=== PATIENT | male | born 1945 | race Caucasian/White ===

== ENCOUNTER 2017-01-22 19:40 | Observation (INO) | payer MEDICARE ==
[2017-01-22 19:42] VITALS: BP 208/102; PULSE 120; RESP 18; TEMP 98.1; O2SAT 96
[2017-01-22 19:58] VITALS: RESP 19; O2SAT 97
--- NOTE | 2017-01-22 20:02 | PD ---
HPI Chief Complaint: chest pain Time Seen by Provider: 19:46 Travel History International Travel<30 days: No Contact w/Intl Traveler<30days: No History of Present Illness HPI The patient is a 71 year old male who presents to the [facility] emergency department with a history of reportedly not feeling well since between 1 and 2 PM today. He reports that he has felt flushed with a pressure in his neck and an aching sensation in the left arm. The patient reports that he also had a few minutes of chest pain. He denies having any chest pain at this time. He reports that his arm achiness may be related to receiving a flu shot 3 days ago , however he was concerned that he does have a history of myocardial infarction in 2013. His last stress test was 2 years ago. Recently moved to the area and does not have a primary care physician or driver courier at this time. He reports that at 6 PM he did take 2 adult aspirin related to his symptoms. He took his usual blood pressure medication as well. On review of systems otherwise, the patient denies having any cough, congestion, worsening shortness of breath, abdominal pain, vomiting, urinary symptoms, or neurologic symptoms. The patient incidentally does report on review of systems that he had a colonoscopy with polypectomy done 4 weeks ago. He reports that his bowels have not been regular since then. He reports that he has been using stool softeners to help himself ago. He reports that yesterday he did move his bowels 7 times. He denies having any blood in his stool or black or tarry stools. [facility] Past Medical History Narrative Medical The patient's past medical history is significant for hypertension, COPD, hyperlipidemia, history of coronary artery disease status post myocardial infarction in 2013 and a single stent placed. Past Surgical History Narrative Surgical The patient's past surgical history is significant for colonoscopy with polypectomy, cholecystectomy, hernia repair, left leg surgery related to a skin infection Social History Alcohol Use: Yes (occasionally) Tobacco Use: No (quit in 2012) Substance Use: No Allergies-Medications (Allergen,Severity, Reaction): Coded Allergies: No Known Allergies (Unverified , 01/22/17) Review of Systems Except as stated in HPI: all other systems reviewed are Neg General / Constitutional: No: Fever Eyes: No: Visual changes HENT: Positive: Neck Pain, No: Headaches, Rhinorrhea, Congestion, Neck Stiffness Cardiovascular: Positive: Chest Pain or Discomfort, Dyspnea on exertion Respiratory: Positive: Shortness of Breath (chronic in nature related to COPD) , No: Cough Gastrointestinal: Positive: Diarrhea, Changes in Bowel Habits, No: Nausea, Vomiting, Abdominal Pain, Indigestion, Loss of Appetite Genitourinary: No: Dysuria Musculoskeletal: No: Pain Skin: No Rash Neurologic: No: Weakness, Focal Abnormalities, Change in Mentation, Slurred Speech, Sensory Disturbance Psychiatric: No: Depression Endocrine: No: Polydipsia Hematologic/Lymphatic: No: Easy Bruising Physical Exam Narrative General: The patient is a well-developed well-nourished male in no acute distress. Head and Neck exam: Head is normocephalic atraumatic. Eyes: EOMI, pupils are equal round and reactive to light. Nose: Midline septum with pink mucous membranes Mouth: Dentition unremarkable. Moist mucus membranes. Posterior oropharynx is not erythematous. No tonsillar hypertrophy. Uvula midline. Airway patent. Neck: No palpable lymphadenopathy. No nuchal rigidity. No thyromegaly. Cardiovascular: Sinus tachycardia in the low 100 without murmurs, gallops, or rubs. No pulse deficit to the extremities on simultaneous auscultation and palpation of his radial artery. Lungs: Clear to auscultation bilaterally. No wheezes, rhonchi, or rales. Abdomen: Soft, without tenderness to palpation in all 4 quadrants of the abdomen. No guarding, rebound, or rigidity. No bowel sounds are audible. No tenderness on palpation of McBurney's point. Extremities: No clubbing, cyanosis, or edema. 2+ pulses in all 4 extremities. No calf tenderness on palpation. Back: No costovertebral angle tenderness to palpation. Neurologic Exam: Grossly nonfocal. Skin Exam: No rash noted. Intact skin that is warm and dry. Data Data Last Documented VS Vital Signs Date Time Temp Pulse Resp B/P (MAP) Pulse Ox O2 Delivery O2 Flow Rate FiO2 01/22/17 19:58 19 97 Room Air 01/22/17 19:58 98 01/22/17 19:42 98.1 Orders Orders Electrocardiogram (01/22/17 19:55) Complete Blood Count With Diff (01/22/17 19:55) Comprehensive Metabolic Panel (01/22/17 19:55) Creatine Kinase (Cpk) (01/22/17 19:55) Ckmb (Isoenzyme) Profile (01/22/17 19:55) Troponin I (01/22/17 19:55) B-Type Natriuretic Peptide (01/22/17 19:55) Prothrombin Time / Inr (Pt) (01/22/17 19:55) Act Partial Throm Time (Ptt) (01/22/17 19:55) Lipase (01/22/17 19:55) Magnesium (Mg) (01/22/17 19:55) Chest, Single Ap (01/22/17 19:55) Iv Access Insert/Monitor (01/22/17 19:55) Ecg Monitoring (01/22/17 19:55) Oximetry (01/22/17 19:55) Nitroglycerin 2% Oint (Nitroglycerin 2% (01/22/17 20:15) Sodium Chlorid 0.9% 500 Ml Inj (Ns 500 M (01/22/17 20:15) Admit Order (Ed Use Only) (01/22/17 21:32) Labs Laboratory Tests Test 01/22/17 19:50 White Blood Count 8.1 TH/MM3 Red Blood Count 5.05 MIL/MM3 Hemoglobin 16.3 GM/DL Hematocrit 46.8 % Mean Corpuscular Volume 92.5 FL Mean Corpuscular Hemoglobin 32.3 PG Mean Corpuscular Hemoglobin Concent 34.9 % Red Cell Distribution Width 12.8 % Platelet Count 303 TH/MM3 Mean Platelet Volume 7.1 FL Neutrophils (%) (Auto) 69.4 % Lymphocytes (%) (Auto) 20.9 % Monocytes (%) (Auto) 6.5 % Eosinophils (%) (Auto) 2.7 % Basophils (%) (Auto) 0.5 % Neutrophils # (Auto) 5.6 TH/MM3 Lymphocytes # (Auto) 1.7 TH/MM3 Monocytes # (Auto) 0.5 TH/MM3 Eosinophils # (Auto) 0.2 TH/MM3 Basophils # (Auto) 0.0 TH/MM3 CBC Comment DIFF FINAL Differential Comment Prothrombin Time 10.7 SEC Prothromb Time International Ratio 1.0 RATIO Activated Partial Thromboplast Time 27.1 SEC Blood Urea Nitrogen 11 MG/DL Creatinine 1.23 MG/DL Random Glucose 118 MG/DL Total Protein 8.8 GM/DL Albumin 4.7 GM/DL Calcium Level 9.4 MG/DL Magnesium Level 2.1 MG/DL Alkaline Phosphatase 137 U/L Aspartate Amino Transf (AST/SGOT) 33 U/L Alanine Aminotransferase (ALT/SGPT) 36 U/L Total Bilirubin 1.1 MG/DL Sodium Level 136 MEQ/L Potassium Level 3.7 MEQ/L Chloride Level 102 MEQ/L Carbon Dioxide Level 26.8 MEQ/L Anion Gap 7 MEQ/L Estimat Glomerular Filtration Rate 58 ML/MIN Total Creatine Kinase 82 U/L Troponin I LESS THAN 0.02 NG/ML B-Type Natriuretic Peptide 15 PG/ML Lipase 144 U/L MDM Medical Decision Making Medical Screen Exam Complete: Yes Emergency Medical Condition: Yes Medical Record Reviewed: Yes Interpretation(s) Last Impressions Chest X-Ray 01/22/171954 Signed Impressions: Service Date/Time: Sunday, January 22, 2017 19:57 - CONCLUSION: Pulmonary emphysema and scarring or atelectasis on the right. Estevan Miranda MD Differential Diagnosis Acute coronary syndrome, versus aortic dissection, versus pulmonary embolism, versus COPD exacerbation, versus new-onset congestive heart failure Narrative Course During the course of the patients emergency department visit, the patients history, examination, and differential diagnosis were reviewed with the patient. The patient was placed on a door and arrival attendant with oximetry and frequent blood pressure monitoring. The patient had IV access obtained and blood work sent for analysis. The patient's initial blood pressure on arrival is 200 systolic, however after waiting in the emergency department and being hooked up to the monitor, the patient's blood pressure quickly came down to 167 systolic. The patient's ECG done on arrival shows a sinus tachycardia rate of 107, QRS duration 60 ms, QTC [address] segment elevation, T waves are inverted in aVL, V1, V2 The patient was initially provided nitroglycerin 1 inch of the chest wall, normal saline a 500 mL bolus 1. The patients laboratory studies were reviewed and remarkable for a white count of 8.1, hemoglobin 16.3, platelets 303 with a normal differential, CMP is remarkable for glucose of 118, total bilirubin 1.1, alkaline phosphatase 137, CPK 82, troponin I less than 0.02, BNP is 15, total protein 8.8, lipase 144, PT 10.7, PTT 27.1. Radiology studies were reviewed and remarkable for a chest x-ray that shows pulmonary emphysema and scarring or atelectasis on the right side. Given the fact that the patient has not had any stress testing done in the last 2 years the patient will be admitted to the chest pain center for rule out serial cardiac enzyme protocol. The patients results were discussed with the patient, including the plan of care. I explained that further testing and/ or monitoring is indicated based on the patients history, examination, and/ or laboratory findings. Therefore, I recommended admission for additional evaluation. The patient expressed understanding and was agreeable with this plan. The patient was admitted to the hospital in stable condition and sent to a bed under the care of chest pain center. Diagnosis Primary Impression: Chest pain, rule out acute myocardial infarction Admitting Information Admitting Physician Requests: Aliyah Crowe MD Jan 22, 2017 20:02
[2017-01-22] MEDS ORDERED: NITROGLYCERIN 2% OINT 1 GM PACKET TOPICAL ONE (20:15)
[2017-01-22] MEDS ORDERED: SODIUM CHLORID 0.9% 500 ML INJ 500 ML IV ONE (20:15)
--- NOTE | 2017-01-22 20:16 | RADRPT ---
EXAM DATE/TIME: 01/22/2017 19:57 [facility] COMPARISON: No previous studies available for comparison. INDICATIONS : Chest pain MEDICAL HISTORY : Cardiovascular disease. SURGICAL HISTORY : Coronary artery stent. ENCOUNTER: Initial ACUITY: 1 day PAIN SCORE: 2/10 LOCATION: chest FINDINGS: Single AP view of the chest. Hyperlucency at the right upper lung suggesting emphysema. Linear subseg mental atelectasis or scarring in the right midlung and lower lung. Lungs are otherwise clear. No angela dence of pleural effusion or pneumothorax. Cardiomediastinal silhouette within normal limits. CONCLUSION: Pulmonary emphysema and scarring or atelectasis on the right. Estevan Miranda MD on January 22, 2017 at 20:13 Board Certified Radiologist. This report was verified electronically.
[2017-01-22 20:17] LABS: AUTOMATED NEUTROPHIL # 5.6 TH/MM3 (1.8-7.7); BASOPHIL % 0.5 % (0.0-2.0); EOSINOPHIL # 0.2 TH/MM3 (0-0.4); EOSINOPHIL % 2.7 % (0.0-4.0); HEMATOCRIT 46.8 % (39.0-51.0); HEMO FLAGS DIFF FINAL; LYMPH % 20.9 % (9.0-44.0); LYMPHOCYTE # 1.7 TH/MM3 (1.0-4.8); MEAN CELL VOLUME 92.5 FL (80.0-100.0); MEAN CORPUSCULAR HEMOGLOBIN 32.3 PG (27.0-34.0); MEAN CORPUSCULAR HGB CONC 34.9 % (32.0-36.0); MONO % 6.5 % (0.0-8.0); NEUT % 69.4 % (16.0-70.0); PLATELET COUNT 303 TH/MM3 (150-450); RED BLOOD COUNT 5.05 MIL/MM3 (4.50-5.90); RED CELL DISTRIBUTION WIDTH 12.8 % (11.6-17.2); WHITE BLOOD COUNT 8.1 TH/MM3 (4.0-11.0)
[2017-01-22 20:25] LABS: APTT (PATIENT) 27.1 SEC (24.3-30.1); PROTHROMBIN TIME - PATIENT 10.7 SEC (9.8-11.6)
[2017-01-22 20:34] LABS: ALT (GPT) 36 U/L (12-78)
[2017-01-22 20:49] LABS: ALKALINE PHOSPHATASE 137 U/L (45-117); ANION GAP 7 MEQ/L (5-15); AST (GOT) 33 U/L (15-37); BICARBONATE 26.8 MEQ/L (21.0-32.0); BLOOD UREA NITROGEN 11 MG/DL (7-18); CHLORIDE 102 MEQ/L (98-107); CREATINE KINASE 82 U/L (39-308); GLOMERULAR FILTRATION RATE 58 ML/MIN (>89); MAGNESIUM 2.1 MG/DL (1.5-2.5); POTASSIUM 3.7 MEQ/L (3.5-5.1); SODIUM (NA) 136 MEQ/L (136-145); TOTAL BILIRUBIN ADULT 1.1 MG/DL (0.2-1.0)
[2017-01-22 21:00] VITALS: BP 121/66; PULSE 84; RESP 18; O2SAT 98
[2017-01-22] MEDS ORDERED: ONDANSETRON HCL 4 MG/2 ML VIAL IV PUSH PRN (21:45)
[2017-01-22] MEDS ORDERED: SODIUM CHLORIDE 0.9% FLUSH 10 ML FLUSH IV FLUSH PRN (21:45)
[2017-01-22] MEDS ORDERED: ACETAMINOPHEN 500 MG CPLT PO PRN (21:45)
[2017-01-22 23:35] LABS: CREATINE KINASE 52 U/L (39-308)
[2017-01-23 00:48] VITALS: BP 107/67; PULSE 79; RESP 18; TEMP 98.1; O2SAT 95
[2017-01-23 02:31] LABS: CREATINE KINASE 45 U/L (39-308)
[2017-01-23 04:53] VITALS: BP 105/65; PULSE 78; RESP 18; TEMP 98.5; O2SAT 93
[2017-01-23] MEDS: NITROGLYCERIN 2% OINT 1 GM PACKET TOP SCH ×2 (05:35)
[2017-01-23 07:03] VITALS: PULSE 79
--- NOTE | 2017-01-23 08:32 | HHI.HP ---
HPI Primary Care Physician No Local Primary Care Physician Chief Complaint Chest pressure History of Present Illness 71-year-old male with history of coronary artery disease, x1 cardiac stent, and COPD presents to emergency room for further evaluation of chest pressure. Onset yesterday afternoon between 1 and 2 PM. Location left anterior chest, posterior neck, and head pressure accompanied with bilateral arms "feeling funny." No weakness, numbness, or tingling of arms. No associated symptoms of nausea, vomiting, dyspnea, or diaphoresis. Duration approximately 6 hours. No known precipitating factors. Relieving factors none. He reports gradually relief over 4 hours after saline bolus and Nitro paste placement. Currently he is chest pain-free. Denies similar pain in the past. 2012 [place] symptoms included severe discomfort as "an elephant sitting on my chest, with nausea, dyspnea, and diaphoresis." Reports stent placed in LAD within 20-30 minutes arriving to ED. This occurred in [place]. Review of Systems General: No fatigue,weakness, fever, chills, recent illness, or change in appetite. Has been in his general state of health. 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 HEENT: No MATHEWS, "head pressure" has improved CV: As stated above. No current CP, discomfort, or pressure. No palpitations or intermittent leg pain. RESP: History of COPD with reported chronic, exertional sob. No cough, wheeze, or recent URI. GI: No nausea, vomiting, pain, distention, melena, or blood in the stool. Colonoscopy 4 weeks ago with polyp removal. since this time bowel habits have varied between constipation and loose stools. Plans to follow-up with GI this week. No unintentional weight gain or weight loss. : No dysuria EXT: No lower leg edema, no paraesthesias MS: No discomfort or change in ROM NEURO: No change in memory, difficulty with balance, LOC, motor/sensory deficits PSYCH: No anxiety, depression, or situational stress. SKIN: No rashes, no concerning lesions Past Family Social History Allergies: Coded Allergies: No Known Allergies (Unverified , 01/22/17) Past Medical History CAD, x1 cardiac stent, COPD Past Surgical History Cholecystectomy, hernia repair Reported Medications Spiriva 18mcg QD Symbicort 160/4.5 daily Esomeprazole 40mg QD Atorvastatin 40 mg daily Lisinopril 5 mg daily Montelukast 10 mg daily Aspirin 325 mg daily Active Ordered Medications Current Medications Medications (Trade) Dose Ordered Sig/Lisa Route Start Time Stop Time Status Last Admin (NS Flush) 2 ml UNSCH PRN IV FLUSH 01/22/17 21:45 (NS Flush) 2 ml BID IV FLUSH 01/23/17 09:00 (Tylenol) 500 mg Q4H PRN PO 01/22/17 21:45 (Zofran Inj) 4 mg Q6H PRN IV PUSH 01/22/17 21:45 (Nitroglycerin 2% Oint) 1 inch Q6HR TOP 01/23/17 00:00 (Aspirin) 325 mg DAILY PO 01/23/17 09:00 Family History Father CABG 3 in his early 50s. Mother from breast cancer age 60. Social History Known coronary artery disease. No known diabetes, hyperlipidemia, or hypertension. Appropriately on statin therapy. Former smoker, 100 pack year history. Denies any alcohol use. 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 Endorses a busy lifestyle, denies any routine exercise regimen. Past cardiac testing Chemical stress test 2 years ago unremarkable. Does not have a local programs manager. Cardiac catheterization in 2012-stent placed to LAD. Sounds as though he was a STEMI alert, this occurred while living in [place]. Physical Exam Vital Signs Vital Signs Date Time Temp Pulse Resp B/P (MAP) Pulse Ox O2 Delivery O2 Flow Rate FiO2 01/23/17 07:03 79 01/23/17 06:33 21 01/23/17 04:53 98.5 78 18 105/65 (78) 93 01/23/17 00:48 98.1 79 18 107/67 (80) 95 01/22/17 23:18 01/22/17 21:00 84 18 121/66 (84) 98 Room Air 01/22/17 19:58 19 97 Room Air 01/22/17 19:58 98 16 97 Room Air 01/22/17 19:42 98.1 120 18 208/102 (137) 96 Room Air Physical Exam GENERAL: Alert WN, WD, NAD, pleasant, male HEAD: NC, AT EYES: Sclera clear, conjunctiva without injection, pupils equal and round ENT: Mucous membranes pink and moist NECK: Supple, no masses, trachea midline CV: RRR, without murmur, rub, gallop, no JVD, S1-S2 no S3-S4. No carotid bruits. Chest wall nontender with palpation. RESP: Clear upper lobes, diminished bases. no crackles, wheeze, rhonchi, symmetrical chest rise, nonlabored, able to speak in full sentences ABD: Soft, NT, ND, no masses, positive bowel tones EXT: Pulses +24, no dependent edema MS: Normal tone 4 extremities, no obvious deformities, full range of motion NEURO: motor strength 5/5, gait WNL PSYCH: A+O 3, pleasant affect, appropriate speech, mood, insight and judgment SKIN: Normal turgor, normal texture, no lesions, no rashes, sluggish cap refill , even hair distribution Laboratory Laboratory Tests Test 01/22/17 19:50 01/22/17 23:05 01/23/17 01:45 White Blood Count 8.1 Red Blood Count 5.05 Hemoglobin 16.3 Hematocrit 46.8 Mean Corpuscular Volume 92.5 Mean Corpuscular Hemoglobin 32.3 Mean Corpuscular Hemoglobin Concent 34.9 Red Cell Distribution Width 12.8 Platelet Count 303 Mean Platelet Volume 7.1 Neutrophils (%) (Auto) 69.4 Lymphocytes (%) (Auto) 20.9 Monocytes (%) (Auto) 6.5 Eosinophils (%) (Auto) 2.7 Basophils (%) (Auto) 0.5 Neutrophils # (Auto) 5.6 Lymphocytes # (Auto) 1.7 Monocytes # (Auto) 0.5 Eosinophils # (Auto) 0.2 Basophils # (Auto) 0.0 CBC Comment DIFF FINAL Differential Comment Prothrombin Time 10.7 Prothromb Time International Ratio 1.0 Activated Partial Thromboplast Time 27.1 Blood Urea Nitrogen 11 Creatinine 1.23 Random Glucose 118 Total Protein 8.8 Albumin 4.7 Calcium Level 9.4 Magnesium Level 2.1 Alkaline Phosphatase 137 Aspartate Amino Transf (AST/SGOT) 33 Alanine Aminotransferase (ALT/SGPT) 36 Total Bilirubin 1.1 Sodium Level 136 Potassium Level 3.7 Chloride Level 102 Carbon Dioxide Level 26.8 Anion Gap 7 Estimat Glomerular Filtration Rate 58 Total Creatine Kinase 82 52 45 Troponin I LESS THAN 0.02 LESS THAN 0.02 LESS THAN 0.02 B-Type Natriuretic Peptide 15 Lipase 144 Result Diagram: 01/22/17194901/22/171949 Imaging Last Impressions Chest X-Ray 01/22/171954 Signed Impressions: Service Date/Time: Sunday, January 22, 2017 19:57 - CONCLUSION: Pulmonary emphysema and scarring or atelectasis on the right. Estevan Miranda MD Course EKG NSR, normal axis, no st t segment changes Caprini VTE Risk Assessment Caprini VTE Risk Assessment: Mod/High Risk (score >= 2) Caprini Risk Assessment Model Point Value = 1 Point Value = 2 Point Value = 3 Point Value = 5 Age 41-60 Minor surgery BMI > 25 kg/m2 Swollen legs Varicose veins or History of unexplained or recurrent spontaneous Oral contraceptives or hormone replacement Sepsis (< 1 month) Serious lung disease, including pneumonia (< 1 month) Abnormal pulmonary function Acute myocardial infarction Congestive heart failure (< 1 month) History of inflammatory bowel disease Medical patient at bed rest Age 61-74 Arthroscopic surgery Major open surgery (> 45 min) Laparoscopic surgery (> 45 min) Malignancy Confined to bed (> 72 hours) Immobilizing plaster cast Central venous access Age >= 75 History of VTE Family history of VTE Factor V Leiden Prothrombin [id number] Lupus anticoagulant Anticardiolipin antibodies Elevated serum homocysteine Heparin-induced thrombocytopenia Other congenital or acquired thrombophilia Stroke (< 1 month) Elective arthroplasty Hip, pelvis, or leg fracture Acute spinal cord injury (< 1 month) Prophylaxis Regimen Total Risk Factor Score Risk Level Prophylaxis Regimen 0-1 Low Early ambulation 2 Moderate Order ONE of the following: *Sequential Compression Device (SCD) *Heparin 5000 units SQ BID 3-4 Higher Order ONE of the following medications: *Heparin 5000 units SQ TID *Enoxaparin/Lovenox 40 mg SQ daily (WT < 150 kg, CrCl > 30 mL/min) *Enoxaparin/Lovenox 30 mg SQ daily (WT < 150 kg, CrCl > 10-29 mL/min) *Enoxaparin/Lovenox 30 mg SQ BID (WT < 150 kg, CrCl > 30 mL/min) AND/OR *Sequential Compression Device (SCD) 5 or more Highest Order ONE of the following medications: *Heparin 5000 units SQ TID (Preferred with Epidurals) *Enoxaparin/Lovenox 40 mg SQ daily (WT < 150 kg, CrCl > 30 mL/min) *Enoxaparin/Lovenox 30 mg SQ daily (WT < 150 kg, CrCl > 10-29 mL/min) *Enoxaparin/Lovenox 30 mg SQ BID (WT < 150 kg, CrCl > 30 mL/min) AND *Sequential Compression Device (SCD) Assessment and Plan Assessment and Plan #1 Atypical chest pain-the chest pain center. Ruled out with 3 sets of EKGs and cardiac enzymes. Seen and evaluated by Dr. Jose Juan Hu. Proceed with exercise stress test. If stress test unremarkable without signs of ischemia, plan would be to discharge home. Encouraged to establish with a PCP and a local programs manager. #2 History of CAD-continue atorvastatin, aspirin, and lisinopril. Discussed importance of establishing with a local programs manager. #3 COPD-continue Symbicort, Spiriva, and montelukast #4 GERD-continue esomeprazole Robyn Ojeda Jan 23, 2017 08:32
[2017-01-23] MEDS ORDERED: ASPIRIN 325 MG TAB PO SCH (09:00)
[2017-01-23] MEDS ORDERED: SODIUM CHLORIDE 0.9% FLUSH 10 ML FLUSH IV FLUSH SCH (09:00)
[2017-01-23] MEDS ORDERED: NEXI40CA PO (09:10)
[2017-01-23] MEDS ORDERED: SPIRCAP INH (09:22)
[2017-01-23] MEDS ORDERED: SYMB80AE INH (09:22)
[2017-01-23] MEDS ORDERED: MONT10TA4 PO (09:22)
[2017-01-23] MEDS ORDERED: LISI-519 PO (09:22)
[2017-01-23] MEDS ORDERED: ATOR40TA16 PO (09:22)
[2017-01-23] MEDS ORDERED: PANTOPRAZOLE SOD 40 MG DELAYED RELEASE TAB PO SCH (11:00)
[2017-01-23] MEDS ORDERED: LISINOPRIL 5 MG TAB PO SCH (11:00)
--- NOTE | 2017-01-23 11:28 | HHI.DCPOC ---
Discharge Care Plan Diagnosis: (1) Atypical chest pain (2) Hx of coronary artery disease Goals to Promote Your Health * To prevent worsening of your condition and complications * To maintain your health at the optimal level Directions to Meet Your Goals Take your medications as prescribed Follow your dietary instruction Follow activity as directed Keep your appointments as scheduled Take your immunizations and boosters as scheduled If your symptoms worsen call your PCP, if no PCP go to Urgent Care Center or Emergency Room Smoking is Dangerous to Your Health. Avoid second hand smoke Call the 24-hour hour crisis hotline for domestic abuse at Robyn Ojeda Jan 23, 2017 11:28
--- NOTE | 2017-01-23 14:30 | EKG ---
Date Performed: 01/23/2017 Time Performed: 02:15:43 PTAGE: 71 years EKG: Sinus rhythm LOW QRS VOLTAGE IN PRECORDIAL LEADS PREVIOUS TRACING : 01/23/2017 02.12 Since previous tracing, no significant change noted DOCTOR: Jose Juan Hu Interpretating Date/Time 01/23/2017 14:30:00
--- NOTE | 2017-01-23 14:31 | EKG ---
Date Performed: 01/22/2017 Time Performed: 23:09:03 PTAGE: 71 years EKG: Sinus rhythm INDETERMINATE AXIS LOW QRS VOLTAGE IN PRECORDIAL LEADS BORDERLINE ECG NO PREVIOUS TRACING DOCTOR: Jose Juan Hu Interpretating Date/Time 01/23/2017 14:30:32
--- NOTE | 2017-01-23 14:32 | EKG ---
Date Performed: 01/22/2017 Time Performed: 19:50:12 PTAGE: 71 years EKG: SINUS TACHYCARDIA INDETERMINATE AXIS LOW QRS VOLTAGE IN PRECORDIAL LEADS ABNORMAL ECG NO PREVIOUS TRACING DOCTOR: Jose Juan Hu Interpretating Date/Time 01/23/2017 14:31:39
--- NOTE | 2017-01-23 14:35 | TR ---
Date Performed: 01/23/2017 Time Performed: 10:30:02 DOCTOR: Jose Juan Hu DRUG LIST: CLINICAL HISTORY: CP R/O OH REASON FOR TEST: REASON FOR ENDING: OBSERVATION: CONCLUSION: Jerry protocol completed. Stopped sec to reaching target heart rate and shortness of breath, known COPD and exertional sob normally. Maximum JY=324 Target HR Achieved=85.0% Maximum BP=1 28/72 Total Exercise Time=3:44. No reprod chest pain. Freq PVC at peak and immediate recovery. No st t segment changes. Normal bp response. Poor exercise tolerance most likely related to chronic lung di sease. Recovery quick and unremarkable. COMMENTS: Patient exercised using the Jerry protocol. No electrocardiographic changes were seen to suggest ischemia. Hemodynamic response to exercise was normal. No significant arrhythmia was prese nt.
[2017-01-23] MEDS ORDERED: MONTELUKAST SODIUM 10 MG TAB PO SCH (21:00)
[2017-01-23] MEDS ORDERED: BUDESONIDE-FORMOTEROL 80/4.5 MCG INHALER INH SCH (21:00)
[2017-01-23] MEDS ORDERED: ATORVASTATIN 40 MG TAB PO SCH (21:00)
[2017-01-24] MEDS ORDERED: TIOTROPIUM BROMIDE 18 MCG INH INH SCH (09:00)
== END 2017-01-23 12:47 | disposition home or self-care (01) ==
LOC: NEPE 19:40 → NEDA 21:34 → NEPFCDU 23:17
DX: R07.9 Chest pain, unspecified (principal); J43.9 Emphysema, unspecified; K21.9 Gastro-esophageal reflux disease without esophagitis; Z79.899 Other long term (current) drug therapy; I25.2 Old myocardial infarction; I25.10 Atherosclerotic heart disease of native coronary artery without angina pectoris; Z95.5 Presence of coronary angioplasty implant and graft; I10 Essential (primary) hypertension; E78.5 Hyperlipidemia, unspecified; R00.0 Tachycardia, unspecified; Z87.891 Personal history of nicotine dependence; R06.02 Shortness of breath
CPT/HCPCS: 71010; 80053; 82550; 83690; 83735; 83880; 84484; 85025; 85610; 85730; 93005; 93017; 96360; 99285; G0378; J7040